=== PATIENT | male | born 1970 | race Caucasian/White ===

== ENCOUNTER 2024-01-09 13:01 | Emergency (ER) | payer OTHER ==
[~2024-01-09] VITALS: Ht 175.3 cm; Wt 86.2 kg
[~2024-01-09 13:01] MED LIST: ACET-2766 GT; ALBU2.5V7 INH; AMAN100C19 PO; AMIN30LI31 GT; APIX5TAB GT; BISA10SU61 PR; DICY-14 GT; DOCU100T10 GT; GUAI600T86 GT; HYDR-3919 GT; LEVE100S GT; LORA2ORA4; MINE3.5O27 EACH EYE; ONDA4TAB11 GT; PANT40SU2 GT; VANC1FRO2 IV; Vancomycin Per Pharmacy XX; ZOLP10TA2 PO
[2024-01-09 13:05] VITALS: BP_SYST 102; PULSE 87; RESP 18; TEMP 98.2; O2SAT 96
[2024-01-09 14:28] LABS: BASOPHILS % (AUTO) 0.3 % (0.0-2.0); EOSINOPHILS # (AUTO) 0.1 K/uL (0.0-0.4); EOSINOPHILS % (AUTO) 1.8 % (0.0-4.0); HEMATOCRIT 31.6 % (36-54); HEMOGLOBIN 10.9 g/dL (14.0-18.0); LYMPHOCYTES # (AUTO) 1.4 K/uL (1.0-5.5); LYMPHOCYTES % (AUTO) 20.2 % (20.5-51.5); MEAN CORPUSCULAR HEMOGLOBIN 29 pg (27-31); MEAN CORPUSCULAR HGB CONC 34 % (32-36); MEAN CORPUSCULAR VOLUME 85 fL (79.0-98.0); MONOCYTES # (AUTO) 0.4 K/uL (0.0-1.0); MONOCYTES % (AUTO) 6.3 % (1.7-9.3); NEUTROPHILS # (AUTO) 4.9 K/uL (1.8-7.7); NEUTROPHILS % (AUTO) 71.4 % (40.0-70.0); PLATELET COUNT (AUTO) 192 K/uL (130-430); RED BLOOD CELL COUNT(AUTO) 3.73 MIL/uL (4.2-6.2); RED CELL DISTRIBUTION WIDTH 16.3 % (9.0-15.0); WHITE BLOOD COUNT (AUTO) 6.9 K/uL (4.8-10.8)
[2024-01-09 14:32] LABS: ANION GAP 8 (5-15); CARBON DIOXIDE 29 mmol/L (23-29); CHLORIDE 104 mmol/L (98-107); CREATININE 0.79 mg/dL (0.55-1.30); GFR AFRICAN AMERICAN 131 mL/min (>90); GLUCOSE 84 mg/dL (74-106); POTASSIUM 3.8 mmol/L (3.5-5.1); SODIUM SERUM 141 mmol/L (136-145); UREA NITROGEN, BLOOD 17 mg/dL (8-21)
[2024-01-09 14:36] LABS: GFR NON AFRICAN-AMERICAN 109 mL/min (>90)
[2024-01-09] MEDS: levETIRAcetam 750 MG in NS 100 ML IV ONE (14:56)
[2024-01-09 16:46] VITALS: BP_SYST 103; PULSE 84; RESP 16; TEMP 98; O2SAT 100
== END 2024-01-09 16:47 | disposition home or self-care (01) ==
LOC: SED 13:01
DX: R56.9 Unspecified convulsions (principal); Z87.820 Personal history of traumatic brain injury; Z79.899 Other long term (current) drug therapy
CPT/HCPCS: 99285; 96365; 70450; 71045; 80048; 85025; 84484; 36415; J1953